=== PATIENT | male | born 1975 | race Two or more races ===

== ENCOUNTER 2017-11-29 15:52 | Outpatient (CLI) | payer OTHER ==
[~2017-11-29] VITALS: Ht 152.4 cm; Wt 104.3 kg
== END 2017-11-29 16:15 | disposition home or self-care (01) ==
LOC: OFIC 805 15:52
DX: K21.9 Gastro-esophageal reflux disease without esophagitis (principal); R49.0 Dysphonia; R13.19 Other dysphagia

== ENCOUNTER 2018-05-23 13:34 | Emergency (ER) | payer OTHER ==
[~2018-05-23] VITALS: Ht 172.7 cm; Wt 90.7 kg
[2018-05-23] MEDS ORDERED: LOSARTAN POTASS50 MG (13:48)
== END 2018-05-23 15:29 | disposition home or self-care (01) ==
LOC: ER 13:34
DX: S00.03XA Contusion of scalp, initial encounter (principal); W22.8XXA Striking against or struck by other objects, initial encounter; Y93.89 Activity, other specified; Y92.69 Other specified industrial and construction area as the place of occurrence of the external cause; Y99.8 Other external cause status

== ENCOUNTER 2019-07-16 20:05 | Emergency (ER) | payer OTHER ==
[~2019-07-16] VITALS: Ht 175.3 cm; Wt 104.3 kg
[~2019-07-16 20:05] MED LIST: LOSARTAN POTASS50 MG
[2019-07-16] MEDS ORDERED: ZYRTEC10 M3 (20:23)
[2019-07-16] MEDS ORDERED: MELOXICAM15 MG (20:23)
[2019-07-16] MEDS ORDERED: MULTI VITAMIN1 EACH (20:24)
[2019-07-16] MEDS ORDERED: CUTIVATE30 GM (20:24)
== END 2019-07-16 21:54 | disposition home or self-care (01) ==
LOC: ER 20:05
DX: B34.9 Viral infection, unspecified (principal)